=== PATIENT | female | born 1975 | race Caucasian/White ===

== ENCOUNTER 2019-01-13 13:14 | Emergency (ER) | payer MEDICAID ==
[2019-01-13] MEDS ORDERED: ASPIRIN 81 MG CHEWABLE TAB PO ONE (13:38)
--- NOTE | 2019-01-13 13:49 | EDPHY ---
H & P Smoking Status: Former smoker Time Seen by Provider: 01/13/19 13:19 HPI/ROS: CHIEF COMPLAINT: Shortness of breath, racing heart HISTORY OF PRESENT ILLNESS: Patient presents with complaints of racing heart, shortness of breath, chest pain. She states that symptoms began Friday morning after waking. She tells me that she was in [place] over the weekend for a jazz [place] and returned on Friday. She felt fine on the plane ride back. In [place] she states she smoked 2 cigarettes which she normally does not do. She also had some drinking but did not drink excessively. On Friday after waking she describes a racing heart and shortness of breath described "like I could get a deep breath". There was a pressure sensation but no pain. She also had some nausea but no vomiting. She describes diarrhea which she had yesterday and still has today. She states the shortness of breath was worse with exertion. She denies upper respiratory infectious symptoms such as rhinorrhea, congestion, sore throat. She has had no cough. She has had no recent illnesses, fevers, chills although states she did get sweaty at night recently. This morning when she woke up she states she felt worse and she noticed some chest pain as well. The pain is substernal moderate in intensity without radiation. She continues have nausea but no vomiting. The only time she has felt this way has been in the context of anxiety attacks but she has never had at last this long. She has never been on any anti anxiety medications. Patient works as a realtor and in retail and has had no industrial or chemical exposures. She has had no known sick contacts or Infectious Disease exposures. She denies leg swelling. She does not do drugs. REVIEW OF SYSTEMS: Constitutional: No fever, no chills. No weight changes. Eyes: No discharge. No visual disturbances. ENT: No sore throat. No URI symptoms. Cardiovascular: Per HPI Respiratory: Per HPI Gastrointestinal: No abdominal pain, no vomiting. Diarrhea present. Genitourinary: No dysuria. No vaginal complaints, LMP in December. Musculoskeletal: No back pain. Skin: No rashes. Neurological: No headache. no numbness or weakness to the extremities. General Appearance: Alert, anxious appearing. Eyes: Pupils equal and round no pallor or injection. ENT, Mouth: Mucous membranes moist. Oropharynx clear, no cervical lymphadenopathy. Respiratory: There are no retractions, lungs are clear to auscultation. Cardiovascular: Tachycardic, regular rhythm, no murmurs rubs or gallops. Normal femoral pulses. No extremity edema. Gastrointestinal: Abdomen is soft and mild diffuse tenderness. no masses, bowel sounds normal. Neurological: Cranial nerves intact. Normal strength and sensation throughout , no focal deficits. Skin: Warm and dry, no rashes. Musculoskeletal: Neck is supple nontender. Extremities are symmetrical, full range of motion. Psychiatric: Patient is oriented X 3, there is no agitation. Medical/surgical history: Fibromyalgia, history of seizures none for over 1 year and no medications currently. Social history: Family history without coronary artery disease, blood clotting. (Rocio Porter) Constitutional: Initial Vital Signs Temperature (C) 36.5 C 01/13/19 13:19 Heart Rate 104 H 01/13/19 13:19 Respiratory Rate 16 01/13/19 13:19 Blood Pressure 128/78 H 01/13/19 13:19 O2 Sat (%) 99 01/13/19 13:19 O2 Delivery Mode Room Air Allergies/Adverse Reactions: No Known Allergies Allergy (Verified 01/13/19 13:21) Home Medications: Medication Instructions Recorded NK [No Known Home Meds] 01/13/19 Medical Decision Making - Diagnostics EKG Interpretation: EKG shows normal sinus rhythm with a rate of 100. Normal axis, intervals. No ST T-wave changes to suggest ischemia or infarct although some diffuse T-wave flattening. Impression sinus tachycardia otherwise normal EKG. (Rocio Porter) ED Course/Re-evaluation: 2:00 p.m. Re-evaluation. Reviewed chest x-ray, EKG, troponin and D-dimer results with patient. Awaiting other lab test. Discussed low likelihood that this represents acute coronary syndrome. Will give 0.5 mg of p. o. Ativan to treat anxiety. (Rocio Porter) [id number]; patient is re-evaluated this time and signed over to me at 2:00 p.m.. She is resting comfortably. She has no chest pain or shortness of breath she feels much better after p. O. Ativan. Her heart rate is down to 88. She had a repeat EKG repeat troponin her 2nd troponin is 0.00. Her repeat EKG time 4:29 p.m. Is sinus rhythm rate of 89 without any signs of acute ischemia no signs of ST elevation or ST depression. This EKG when compared to her previous EKG dated today 01/13 and time 1:27 p.m. Is unchanged morphology. Patient is resting comfortably at this time. She feels much better after p. O. Ativan. I believe her symptoms are stress and anxiety. I will also have her follow up with Cardiology on outpatient basis. She would like to go home. We discussed that she had normal D-dimer and normal troponins x2. TSH that is normal. Chest x-ray. And labs. Normal. We also discussed return precautions she understands return emergency develops worsening chest pain, shortness of breath, fever, syncope, not doing well 1702: Long discussion about work up, labs, tsh, results, patient reports to me she has been very anxious and stress since Friday she has lot on her plate. She reports that she is a realtor and had 2 cm trans actions fall through, 1 of her kids is graduating from high school, additionally she has to move at the end of the month. She states she is under lot of stress and feeling very anxious about this. She has been unable to sleep for 2 days. She feels that she would benefit from anxio-lytic I have agreed after discussing with her that will prescribe her very limited supply of Ativan. She should follow up with her primary care doctor. Additionally on outpatient basis recommend further discussion about anxiety medications with her primary care doctor. We also discussed return her cautions she understands return to the emergency room if develops worsening symptoms questions or concerns. (Rivas Payton) Differential Diagnosis: Differential diagnosis includes but is not limited to arrhythmia, pulmonary embolism, acute coronary syndrome, anxiety, thyroid disorder. Discussed in detail with Dr. Payton at the end of my shift. Disposition pending results of CBC, comprehensive metabolic panel, TSH. If laboratory results unremarkable and responds well to anti anxiety medications may go home with appropriate referrals. (Rocio Porter) - Data Points Medications Given: Discontinued Medications Aspirin (Aspirin) 324 mg PO EDNOW ONE Stop: 01/13/19 13:39 Last Admin: 01/13/19 13:42 Dose: 324 mg Lorazepam (Ativan) 0.5 mg PO EDNOW ONE Stop: 01/13/19 14:03 Last Admin: 01/13/19 14:08 Dose: 0.5 mg Lorazepam (Ativan 1 Mg Prepack#4) 1 btl HILARY CANTU ONE Stop: 01/13/19 17:05 Last Admin: 01/13/19 17:09 Dose: 1 btl Point of Care Test Results: CBC CBC Collection Date 01/13/19 CBC Collection Time 13:39 WBC 6.88 RBC 4.97 HGB 14.5 HCT 44.1 PLT 262 Neut # 4.37 Neut 63.6 LYMPH # 1.9 LYMPH 27.6 MCV 88.7 Chemistry 01/13/19 01/13/19 01/13/19 16:30 13:45 13:44 POC Sodium 141 mEq/L mEq/L (135-145) POC Potassium 4.1 mEq/L mEq/L (3.3-5.0) POC Chloride 102.0 mEq/L mEq/L (97-110) POC Total CO2 27 mEq/L mEq/L (22-31) POC BUN 11 mg/dL mg/dL (7-23) POC Creatinine 1.1 mg/dL H mg/dL (0.6-1.0) POC Glucose 108 mg/dL H mg/dL (70-100) POC Calcium 10.3 mg/dL mg/dL (8.5-10.4) POC Total Bilirubin 0.7 mg/dL mg/dL (0.1-1.4) POC AST 40 IU/L IU/L (14-46) POC ALT 30 IU/L IU/L (9-52) POC Alk Phosphatase 55 IU/L IU/L (38-126) POC Troponin I 0.00 ng/mL ng/mL 0.00 ng/mL ng/mL (0.00-0.08) (0.00-0.08) POC Total Protein 7.4 g/dL g/dL (6.3-8.2) POC Albumin 3.8 g/dL g/dL (3.5-5.0) D-Dimer D-Dimer Collection Date 01/13/19 D-Dimer Collection Time 13:40 D-Dimer (ng/ml) <100 Urine Collection Date 01/13/19 Collection Time 13:37 HCG Results Negative Urine Dip Collection Date 01/13/19 Collection Time 13:37 Specific [place] (1.002-1.030) 1.005 PH (5.0-7.5) 5.5 Leukocytes (Negative) Negative Nitrites (Negative) Negative Protein (Negative) Negative Glucose (Negative) Negative Ketones (Negative) Negative Urobilnogen (0.2-1.0 EU) 0.2 Bilirubin (Negative) Negative Blood (Negative) Negative Departure - Departure Disposition: Home, Routine, Self-Care Clinical Impression: Anxiety, Palpitations Condition: Good Instructions: Lorazepam (By mouth), Heart Palpitations (ED), Anxiety (ED) Additional Instructions: 1. Rest and stay well-hydrated 2. Drink lots of fluids. 3. Return to the emergency room if develops worsening symptoms includes worsening chest pain, shortness of breath, passing out, not doing well 4. Follow up with Cardiology on outpatient basis. Referrals: BRYAN GUEVARA [Primary Care Provider] - As per Instructions Naeem Bautista MD [Medical Doctor] - As per Instructions Lalita Dacosta MD [Medical Doctor] - As per Instructions
--- NOTE | 2019-01-13 13:51 | CPEKG ---
Test Reason : OPEN Blood Pressure : / mmHG Vent. Rate : 100 BPM Atrial Rate : 100 BPM P-R Int : 126 ms QRS Dur : 077 ms QT Int : 326 ms P-R-T Axes : 074 049 027 degrees QTc Int : 421 ms Sinus tachycardia Borderline T wave abnormalities Confirmed by Rocio Porter ([id number]) on 01/13/2019 1:51:06 PM Referred By: Rocio Porter Confirmed By:Rocio Porter
[2019-01-13] MEDS ORDERED: LORazepam 0.5 MG TAB PO ONE (14:02)
[2019-01-13] MEDS ORDERED: LORAZEPAM 1 MG PREPACK#4 BTL TAKEHOME ONE (17:04)
[2019-01-13 17:26] VITALS: BP 116/77
--- NOTE | 2019-01-22 07:23 | CPEKG ---
Test Reason : OPEN Blood Pressure : / mmHG Vent. Rate : 089 BPM Atrial Rate : 089 BPM P-R Int : 136 ms QRS Dur : 079 ms QT Int : 358 ms P-R-T Axes : 065 044 050 degrees QTc Int : 436 ms Sinus rhythm Confirmed by Rivas Payton ([id number]) on 01/22/2019 7:22:41 AM Referred By: Rivas Payton Confirmed By:Rivas Payton
== END 2019-01-13 17:17 | disposition home or self-care (01) ==
LOC: CED 13:14
DX: R00.2 Palpitations (principal); R06.02 Shortness of breath; F41.9 Anxiety disorder, unspecified; F17.200 Nicotine dependence, unspecified, uncomplicated
CPT/HCPCS: 71046-PO; 80053-ER; 81025-ER; 84484-ER; 85025-QW-ER; 85379-QW-ER; 99285-ER